=== PATIENT | male | born 1955 | race Caucasian/White ===

== ENCOUNTER 2023-10-02 12:54 | Outpatient (CLI) | payer MEDICARE, BC, SELFPAY | END 2023-10-02 12:55 | disposition home or self-care (01) | LOC: NFLDUCREF 12:55 | PROVIDERS: PCP Family Medicine; Visit Provider Physician Assistant | DX: R21 Rash and other nonspecific skin eruption (principal); Z11.9 Encounter for screening for infectious and parasitic diseases, unspecified | CPT/HCPCS: 86618 ==